=== PATIENT | male | born 1965 ===

== ENCOUNTER 2018-06-07 21:56 | Outpatient (REF) | payer MEDICARE, OTHER, SELFPAY ==
[2018-06-07 22:43] LABS: ALT 71 U/L (12-78); AST 55 U/L (15-37); Albumin 4.1 g/dL (3.4-5.0); Alkaline Phosphatase 86 U/L (46-116); Anion Gap 9.5 mmol/L (3-11); BUN 18 mg/dL (7-18); Bilirubin, Total 0.5 mg/dL (0.2-1.0); CO2 25.5 mmol/L (21.0-32.0); CREATININE 0.77 mg/dL (0.70-1.30); Calcium 9.1 mg/dL (8.5-10.1); Chloride 104 mmol/L (98-107); Cholesterol 154 mg/dL (50-200); Glucose 162 mg/dL (70-100); HDL Cholesterol 35 mg/dL (40-60); LDL CHOLESTEROL 96 mg/dL (<100); Potassium 4.2 mmol/L (3.5-5.1); Sodium 139 mmol/L (136-145); Total Protein 7.1 g/dL (6.4-8.2); Triglyceride 201 mg/dL (30-150)
== END 2018-06-07 22:16 ==
LOC: NCHCN 21:56
PROVIDERS: PCP Family Medicine; Visit Provider Family Medicine
DX: E11.9 Type 2 diabetes mellitus without complications (principal); I10 Essential (primary) hypertension; M50.10 Cervical disc disorder with radiculopathy, unspecified cervical region; I48.0 Paroxysmal atrial fibrillation
CPT/HCPCS: 80053; 80061; 83721

== ENCOUNTER 2019-01-04 10:06 | Outpatient (REF) | payer MEDICARE, SELFPAY ==
[2019-01-04 22:36] LABS: Microalb ug/mg Crea 19.6 ug/mg Cr
== END 2019-01-04 10:26 ==
LOC: NCHCN 10:06
PROVIDERS: PCP Family Medicine; Visit Provider Internal Medicine
DX: E11.9 Type 2 diabetes mellitus without complications (principal); L40.9 Psoriasis, unspecified
CPT/HCPCS: 82043; 82570